=== PATIENT | male | born 1960 | race Caucasian/White ===

== ENCOUNTER 2019-05-22 10:15 | Observation (INO) | payer OTHER ==
[~2019-05-22] VITALS: Ht 170.2 cm; Wt 96.2 kg
--- NOTE | 2019-05-22 11:51 | Diagnostic Imaging Report ---
EXAM: CT Abdomen and Pelvis WITHOUT intravenous contrast INDICATION: Abdominal pain, rectal bleeding COMPARISON: None. TECHNIQUE: Abdomen and pelvis were scanned utilizing a multidetector helical scanner from the lung base to the pubic symphysis without administration of IV contrast. Coronal and sagittal reformations were obtained. IV CONTRAST: None ORAL CONTRAST: None COMPLICATIONS: None RADIATION DOSE: Total DLP: 1084 mGy*cm Dose modulation, iterative reconstruction, and/or weight based adjustment of the mA/kV was utilized to reduce the radiation dose to as low as reasonably achievable. FINDINGS: LOWER THORAX: Coronary artery atherosclerotic calcifications. HEPATOBILIARY: No focal liver lesion. No biliary ductal dilation. Unremarkable gallbladder. SPLEEN: Calcified granulomas in the nonenlarged spleen. PANCREAS: No focal masses or ductal dilatation. ADRENALS: No adrenal nodules. KIDNEYS/URETERS: No hydronephrosis or renal calculi. 4.2 cm right simple renal cyst. 1.7 cm left simple renal cyst. PELVIC ORGANS/BLADDER: Unremarkable. PERITONEUM / RETROPERITONEUM: No free air or fluid. LYMPH NODES: 4.7 x 1.2 cm left inguinal lymph node with a normal fatty hilum. VESSELS: Unremarkable. GI TRACT: Severe sigmoid and descending colon diverticulosis. No CT evidence of diverticulitis. No abnormal bowel thickening. No bowel obstruction. BONES AND SOFT TISSUES: No acute osseous injury. No suspicious lytic or blastic lesions. Left inguinal hernia contains fat and a small part of the dome of the bladder. IMPRESSION: Severe diverticulosis without CT evidence of diverticulitis. Signed by: Jayden Benson MD on 05/22/2019 11:48 AM
[2019-05-22] MEDS ORDERED: CLONIDINE HCL 0.2 MG TAB PO ONE (12:30)
--- OUTSIDE RECORDS SUMMARY | 2019-05-22 13:00 | XMS REPORT ---
Author Author [facility] Address Unknown Phone Unavailable Care Team Providers Care Speech And Language Clinician Name Role Phone ASHLYN VALVERDE Unavailable Unavailable Problems This patient has no known problems. Allergies, Adverse Reactions, Alerts This patient has no known allergies or adverse reactions. Medications This patient has no known medications. Results Test Description Test Time Test Comments Text Results Atomic Results Result Comments CT ABD/PEL WO CONTRAST-HOPD 2019-05-22 11:41:00 [place] [address] Patient Name: JT VINSON MR #: [id number] : 1960 Age/Sex: 59/M Req #: [id number] [facility] Physician: Ordered by: ASHLYN VALVERDE MD Report #: [id number] Location: [facility] Room/Bed: Procedure: [id number] HOPD/CT ABD/PEL WO CONTRAST-HOPD Exam Date: 05/22/19 Exam Time: 1136 REPORT STATUS: Signed EXAM: CT Abdomen and Pelvis WITHOUT intravenous contrast INDICATION: Abdominal pain, rectal bleeding COMPARISON: None. TECHNIQUE: Abdomen and pelvis were scanned utilizing a multidetector helical scanner from the lung base to the pubic symphysis without administration of IV contrast. Coronal and sagittal reformations were obtained. IV CONTRAST: None ORAL CONTRAST: None COMPLICATIONS: None RADIATION DOSE: Total DLP: 1084 mGy*cm Dose modulation, iterative reconstruction, and/or weight based adjustment of the mA/kV was utilized to reduce the radiation dose to as low as reasonably a chievable. FINDINGS: LOWER THORAX: Coronary artery atherosclerotic calcifications. HEPATOBILIARY: No focal liver lesion. No biliary ductal dilation. Unremarkable gallbladder. SPLEEN: Calcified granulomas in the nonenlarged spleen. PANCREAS: No focal masses or ductal dilatation. ADRENALS: No adrenal nodules. KIDNEYS/URETERS: No hydronephrosis or renal calculi. 4.2 cm right simple renal cyst. 1.7 cm left simple renal cyst. PELVIC ORGANS/BLADDER: Unremarkable. PERITONEUM / RETROPERITONEUM: No free air or fluid. LYMPH NODES: 4.7 x 1.2 cm left inguinal lymph node with a normal fatty hilum. VESSELS: Unremarkable. GI TRACT: Severe sigmoid and descending colon diverticulosis. No CT evidence of diverticulitis. No abnormal bowel thickening. No bowel obstruction. BONES AND SOFT TISSUES: No acute osseous injury. No suspicious lytic or blastic lesions. Left inguinal hernia contains fat and a small part of the dome of the bladder. IMPRESSION: Severe diverticulosis without CT evidence of diverticulitis. Signed by: Meri Benson MD on 05/22/2019 11:48 AM Dictated By: MERI BENSON MD [id number] Transcribed By: ZAKIYA on 05/22/19 1148 COPY TO: ASHLYN VALVERDE MD
--- NOTE | 2019-05-22 14:00 | NUR ---
pt had 3 BM while in er, BRIGHT RED BLOOD NOTED
--- NOTE | 2019-05-22 14:35 | NUR ---
PT ARRIVED VIA STRETCHER FROM ER, AA&OX3, RA, DENIES PAIN AT THIS TIME, ORIENTED TO ROOM AND CALL LIGHT SYSTEM, CALL LIGHT WITHIN REACH, SPOKE WITH DR VARGAS, MADE AWARE OF NEW PT, WILL ROUND
[2019-05-22 15:18] VITALS: BP 135/80
[2019-05-22] MEDS ORDERED: ACETAMINOPHEN/CODEINE 300MG - 30MG TAB PO PRN (15:45)
[2019-05-22] MEDS ORDERED: ONDANSETRON HCL INJ 2MG/ML 2ML 2 MG/ML VIAL IV PRN (15:45)
[2019-05-22] MEDS ORDERED: ACETAMINOPHEN 325 MG TAB PO PRN (15:45)
--- NOTE | 2019-05-22 19:05 | NUR ---
RECEIVED REPORT FROM PREVIOUS NURSE. CALL LIGHT WITHIN REACH. PATIENT IN BED. HAVING BLOODY BOWEL MOVEMENT Addendum: 05/23/19 at 0307 by Winnie De La O RN DID WALKING ROUNDS
[2019-05-22 20:27] VITALS: BP 119/70
[2019-05-22] MEDS ORDERED: BISACODYL 5 MG TAB EC PO SCH ×4 (20:30→22:00)
[2019-05-22 20:39] VITALS: BP 119/70
[2019-05-22 20:41] VITALS: BP 119/70
[2019-05-22] MEDS ORDERED: GABAPENTIN 300 MG CAP PO SCH (21:00)
[2019-05-22] MEDS ORDERED: CITRATE OF MAGNESIA 300ML BOTTLE PO SCH (23:00)
[2019-05-22 23:54] LABS: INR 1.02
[2019-05-23 01:06] VITALS: BP 128/78
--- NOTE | 2019-05-23 01:39 | NUR ---
DR. Elvi OSWALD CALLED AND SAID TO GIVE THE PATIENT VITAMIN K SC NOW AND IN THE MORNING.
[2019-05-23] MEDS ORDERED: PHYTONADIONE 10 MG/ML AMP SQ ONE ×2 (01:45→09:00)
[2019-05-23] MEDS ORDERED: CITRATE OF MAGNESIA 300ML BOTTLE PO SCH (05:00)
[2019-05-23 05:38] VITALS: BP_SYST 119; BP_SYST 137; BP_DIAS 70; BP_DIAS 74
[2019-05-23 05:51] LABS: BASOPHILS % 0.4 % (0.0-1.0); EOSINOPHILS % 0.6 % (0.0-6.0); HEMATOCRIT 36.4 % (38.2-49.6); HEMOGLOBIN 12.1 g/dL (14.0-18.0); LYMPHOCYTES # (AUTO) 1.1 (1.0-3.2); LYMPHOCYTES % 15.5 % (18.0-39.1); MEAN CORPUSCULAR HEMOGLOBIN 29.9 pg (28-32); MEAN CORPUSCULAR HGB CONC 33.2 g/dL (31-35); MEAN CORPUSCULAR VOLUME 89.9 fL (81-99); MONOCYTES # (AUTO) 0.8 (0.2-0.8); MONOCYTES % 11.7 % (4.4-11.3); NEUTROPHILS # (AUTO) 4.9 (2.1-6.9); NEUTROPHILS % 71.5 % (38.7-80.0); PLATELET COUNT 186 x10e3/uL (140-360); RED BLOOD COUNT 4.05 x10e6/uL (4.3-5.7)
[2019-05-23 06:03] LABS: ALANINE AMINOTRANSFERASE 14 IU/L (0-55); ALKALINE PHOSPHATASE 48 IU/L (40-150); ANION GAP 8.9 mmol/L (8-16); BILIRUBIN,DIRECT 0.3 mg/dL (0.0-0.5); BLOOD UREA NITROGEN 14 mg/dL (7-26); BUN/CREATININE RATIO 15 (6-25); CALCIUM 8.7 mg/dL (8.4-10.2); CARBON DIOXIDE 28 mmol/L (22-29); CHLORIDE 105 mmol/L (98-107); CREATININE, SERUM 0.95 mg/dL (0.72-1.25); EST GLOMERULAR FILTRATION RATE > 60 ML/MIN (60-); GLUCOSE 108 mg/dL (74-118); POTASSIUM 4.9 mmol/L (3.5-5.1); SODIUM 137 mmol/L (136-145)
--- NOTE | 2019-05-23 07:00 | NUR ---
report received, walking rounds performed, pt resting quietly in bed, no distress at this time
--- NOTE | 2019-05-23 07:09 | NUR ---
GAVE BEDSIDE SHIFT REPORT TO ONCOMING NURSE. CALL LIGHT WITHIN REACH. PATIENT IN THE BED.
[2019-05-23 08:10] VITALS: BP 116/71
[2019-05-23 08:11] VITALS: BP 116/71
--- NOTE | 2019-05-23 08:22 | NUR ---
SPOKE WITH DR Elvi OSWALD, COLONOSCOPY NOT SCHEDULED UNTIL 2PM, HE SAID TO GIVE PATIENT 1 CUP OF WATER AND 1 CUP OF CHICKEN BROTH, PT RECEIVED,
--- NOTE | 2019-05-23 10:30 | NUR ---
ASSESSMENT: Spiritual concern Pt worried about during his hospitalization. Pt states she worries about him, especially now. Intervention: Provided hospitality and empathic listening. Facilitated illness review. Provided prayer and information on how to reach peanut butter maker, if needed. Outcome: Pt expressed appreciation for visit and prayer. No need to follow at this time. JESSICA COOPER Materials Manager Spiritual Care Department O: [phone]
--- NOTE | 2019-05-23 11:15 | NUR ---
pt taken down for colonoscopy by yuliet
[2019-05-23] MEDS ORDERED: HYOSCYAMINE 0.125 MG TAB ONE (12:04)
--- NOTE | 2019-05-23 14:05 | NUR ---
PT BACK FROM COLONOSCOPY VS STABLE
--- NOTE | 2019-05-23 14:43 | Operative Report ---
DATE OF PROCEDURE: 05/23/2019 SURGEON: Nolan Borja MD PROCEDURE: Colonoscopy with polypectomy and biopsies. INDICATION FOR COLONOSCOPY: Rectal bleeding. MEDICATIONS: The patient was done under MAC, please see anesthesiologist's note. PROCEDURE IN DETAIL: With the patient in left lateral decubitus position, a flexible fiberoptic Olympus colonoscope was inserted into the rectum with ease and advanced all the way to the cecum. Approximately, 4 mm sessile polyp was removed per hot snare polypectomy from the cecum. Approximately, 6 mm polypoid lesion appears to be lipomatous in the ileocecal valve and that was biopsied. The scope was then withdrawn slowly, mucosa overlying the ascending and the transverse appeared to be within normal limits. Diverticular disease was noted in the descending and the sigmoid colon. There was no active bleeding lesion noted. The rectum appeared to be within normal limits. The scope was then retroflexed into the distal rectum. Small internal hemorrhoids were noted, none of which was actively bleeding. The scope was then straightened out, it was subsequently withdrawn. The patient tolerated the procedure well. IMPRESSION: 1. Rule out lipoma, ileocecal valve. 2. Cecal polyp, hot snared. 3. Diverticulosis. 4. Internal hemorrhoids, none actively bleeding. PLAN: 1. Follow up histology. 2. Initiate high-fiber, low-fat diet. 3. Initiate high-fiber supplement. 4. The patient might benefit from a followup colonoscopy in 3 to 5 years. Nolan Borja MD [facility]/ALDAIR /[id number]
[2019-05-23 15:10] VITALS: BP 121/79
[2019-05-23 16:00] VITALS: BP 123/72
[2019-05-23] MEDS ORDERED: PROPOFOL IV EMULSION 10 MG/ML 50 ML VIAL ONE (17:37)
--- NOTE | 2019-05-23 18:19 | NUR ---
PT DISCHARGED HOME, PT WALKED OUT HIMSELF, REFUSED ESCORT BY STAFF, LEFT IN PRIVATE CAR
[2019-05-23] MEDS ORDERED: MIDAZOLAM HCL 5 MG/ML VIAL ONE (19:49)
--- NOTE | 2019-05-24 00:21 | Discharge Summary ---
FINAL DIAGNOSIS: Presumed diverticular bleed. SECONDARY DIAGNOSIS: Colonic polyp. DRILL FOREMAN: Dr. Nolan Borja, GI. PROCEDURES/STUDIES PERFORMED: Colonoscopy. HISTORY: Per H and P. HOSPITAL COURSE: The patient was admitted. Initial hemoglobin was 13, repeat was 12. His rectal bleeding has subsided. The patient underwent a bowel prep and underwent colonoscopy. No active bleeding noted. Therefore, this is presumed diverticular bleed. The patient will follow up with GI in 1-2 weeks. CONDITION ON DISCHARGE: Stable. DISCHARGE MEDICATIONS: Please see medication reconciliation form. Yiching MD [facility]/ALDAIR /[id number]
== END 2019-05-23 18:20 | disposition home or self-care (01) ==
LOC: FSED 10:15 → INTOOBSV 12:43 → ERHOLD 12:43 → MED/SURG 14:04
PROVIDERS: ADMIT Internal Medicine; ATTEND Internal Medicine
DX: K57.33 Diverticulitis of large intestine without perforation or abscess with bleeding (principal); D12.0 Benign neoplasm of cecum; I25.2 Old myocardial infarction; I25.10 Atherosclerotic heart disease of native coronary artery without angina pectoris; G89.29 Other chronic pain
CPT/HCPCS: 36415; 45378; 45380; 45385; 74176; 80048; 80053; 80076; 81003; 85025; 85610; 85730; 86850; 86900; 86920; 88305; 99284; G0378; J2250; J3430